=== PATIENT | female | born 1990 | race Caucasian/White ===

== ENCOUNTER 2020-12-17 09:27 | Emergency (ER) | payer OTHER ==
[2020-12-17 09:36] VITALS: TEMP 98
[2020-12-17] MEDS ORDERED: ONDANSETRON 4 MG/2 ML VIAL IVP STA (10:21)
--- NOTE | 2020-12-17 10:39 | ED ---
General Adult HPI - General Chief complaint: Abdominal Pain Stated complaint: 10 Wks Preg,Vaginal Bleeding Time Seen by Provider: 12/17/20 09:59 Source: patient Mode of arrival: ambulatory Limitations: no limitations - History of Present Illness Initial comments: Patient is a 30-year-old female presenting to the emergency Department with complaints of lower abdominal cramping and vaginal spotting that started 2 days ago. She states she's actually been having lower abdominal cramping and discomfort for the past week and then noticed spotting a couple days ago. She describes it as darker brown in nature, a clot and then has been having spotting every time she wipes. She is currently approximately 10 weeks , . She has history of 2 C-sections, no other abdominal surgeries. She denies any fevers or chills, no chest pain or shortness of breath. She denies any dysuria. She has not had ultrasound during this yet. She has no further complaints at this time. - Related Data Home Medications Medication Instructions Recorded Confirmed Gummy 2 tab PO HS 12/17/20 12/17/20 Allergies Allergy/AdvReac Type Severity Reaction Status Date / Time No Known Allergies Allergy Verified 12/17/20 12:27 Review of Systems ROS Statement: Those systems with pertinent positive or pertinent negative responses have been documented in the HPI. ROS Other: All systems not noted in ROS Statement are negative. Past Medical History Past Medical History: No Reported History History of Any Multi-Drug Resistant Organisms: None Reported Past Surgical History: Section Past Psychological History: Anxiety, Depression Smoking Status: Never smoker Past Alcohol Use History: None Reported Past Drug Use History: Marijuana General Exam - General Exam Comments Initial Comments: GENERAL: Patient is well-developed and well-nourished. Patient is nontoxic and in no acute distress. HEAD: Atraumatic, normocephalic. EYES: Pupils equal round and reactive to light, extraocular movements intact, sclera anicteric, conjunctiva are normal. Eyelids were unremarkable. ENT: TMs normal, nares patent, oropharynx clear without exudates. Moist mucous membranes. NECK: Normal range of motion, supple without lymphadenopathy or JVD. LUNGS: Unlabored respirations. Breath sounds clear to auscultation bilaterally and equal. No wheezes rales or rhonchi. HEART: Regular rate and rhythm without murmurs, rubs or gallops. ABDOMEN: Soft, no deep palpation in the lower abdomen, more so left greater than right, normoactive bowel sounds. No guarding, no rebound. No masses appreciated. : Deferred MUSCULOSKELETAL: Normal extremities with adequate strength and normal range of motion, no pitting or edema. No clubbing or cyanosis. NEUROLOGICAL: Patient is alert and oriented x 3. Motor and sensory are also intact. Cranial nerves II through XII grossly intact. Symmetrical smile. Normal speech, normal gait. PSYCH: Normal mood, normal affect. SKIN: Warm, Dry, normal turgor, no rashes or lesions noted. Limitations: no limitations Course Vital Signs 12/17/20 09:32 Temperature 98.0 F Pulse Rate 83 Respiratory 18 Rate Blood Pressure 118/80 O2 Sat by Pulse 100 Oximetry Medical Decision Making - Medical Decision Making Patient is a 30-year-old female here, currently 10 weeks , presenting with abdominal cramping and some vaginal spotting over the past 2 days. No current vaginal bleeding. Mild discomfort on palpation. Labs are all within normal limits, hCG Quant is 112,000, urine is normal. Ultrasound today reveals a single IUP measuring approximately 10 weeks, 4 days. Heart rate is in the 167 to 180s. No acute abnormality seen. Patient's blood type is B+. I discussed these findings with the patient. She states she has an appointment to see Dr. Howe. She is stable for discharge. Return parameters were discussed with her and she verbalized understanding. Case discussed with Dr. Charles. - Lab Data Result diagrams: 12/17/20 10:27 12/17/20 10:27 Lab Results 12/17/20 12/17/20 12/17/20 Range/Units 10:27 10:27 10:27 WBC 8.8 (3.8-10.6) k/uL RBC 4.32 (3.80-5.40) m/uL Hgb 13.1 (11.4-16.0) gm/dL Hct 36.9 (34.0-46.0) % MCV 85.3 (80.0-100.0) fL MCH 30.4 (25.0-35.0) pg MCHC 35.6 (31.0-37.0) g/dL RDW 12.3 (11.5-15.5) % Plt Count 210 (150-450) k/uL MPV 8.0 Neutrophils % 78 % Lymphocytes % 17 % Monocytes % 4 % Eosinophils % 1 % Basophils % 0 % Neutrophils # 6.8 (1.3-7.7) k/uL Lymphocytes # 1.5 (1.0-4.8) k/uL Monocytes # 0.3 (0-1.0) k/uL Eosinophils # 0.1 (0-0.7) k/uL Basophils # 0.0 (0-0.2) k/uL Sodium 137 (137-145) mmol/L Potassium 3.8 (3.5-5.1) mmol/L Chloride 105 (98-107) mmol/L Carbon Dioxide 24 (22-30) mmol/L Anion Gap 8 mmol/L BUN 6 L (7-17) mg/dL Creatinine 0.36 L (0.52-1.04) mg/dL Est GFR (CKD-EPI)AfAm >90 (>60 ml/min/1.73 sqM) Est GFR (CKD-EPI)NonAf >90 (>60 ml/min/1.73 sqM) Glucose 100 H (74-99) mg/dL Calcium 9.3 (8.4-10.2) mg/dL Total Bilirubin 0.2 (0.2-1.3) mg/dL AST 21 (14-36) U/L ALT 13 (4-34) U/L Alkaline Phosphatase 44 (38-126) U/L Total Protein 6.3 (6.3-8.2) g/dL Albumin 3.8 (3.5-5.0) g/dL HCG, Quant 217621.0 mIU/mL Urine Color Yellow Urine Appearance Clear (Clear) Urine pH 6.5 (5.0-8.0) Ur Specific [place] 1.014 (1.001-1.035) Urine Protein Negative (Negative) Urine Glucose (UA) Negative (Negative) Urine Ketones Negative (Negative) Urine Blood Negative (Negative) Urine Nitrite Negative (Negative) Urine Bilirubin Negative (Negative) Urine Urobilinogen <2.0 (<2.0) mg/dL Ur Leukocyte Esterase Negative (Negative) Blood Type Blood Type Recheck Bld Type Recheck Status 12/17/20 Range/Units 12:00 WBC (3.8-10.6) k/uL RBC (3.80-5.40) m/uL Hgb (11.4-16.0) gm/dL Hct (34.0-46.0) % MCV (80.0-100.0) fL MCH (25.0-35.0) pg MCHC (31.0-37.0) g/dL RDW (11.5-15.5) % Plt Count (150-450) k/uL MPV Neutrophils % % Lymphocytes % % Monocytes % % Eosinophils % % Basophils % % Neutrophils # (1.3-7.7) k/uL Lymphocytes # (1.0-4.8) k/uL Monocytes # (0-1.0) k/uL Eosinophils # (0-0.7) k/uL Basophils # (0-0.2) k/uL Sodium (137-145) mmol/L Potassium (3.5-5.1) mmol/L Chloride (98-107) mmol/L Carbon Dioxide (22-30) mmol/L Anion Gap mmol/L BUN (7-17) mg/dL Creatinine (0.52-1.04) mg/dL Est GFR (CKD-EPI)AfAm (>60 ml/min/1.73 sqM) Est GFR (CKD-EPI)NonAf (>60 ml/min/1.73 sqM) Glucose (74-99) mg/dL Calcium (8.4-10.2) mg/dL Total Bilirubin (0.2-1.3) mg/dL AST (14-36) U/L ALT (4-34) U/L Alkaline Phosphatase (38-126) U/L Total Protein (6.3-8.2) g/dL Albumin (3.5-5.0) g/dL HCG, Quant mIU/mL Urine Color Urine Appearance (Clear) Urine pH (5.0-8.0) Ur Specific [place] (1.001-1.035) Urine Protein (Negative) Urine Glucose (UA) (Negative) Urine Ketones (Negative) Urine Blood (Negative) Urine Nitrite (Negative) Urine Bilirubin (Negative) Urine Urobilinogen (<2.0) mg/dL Ur Leukocyte Esterase (Negative) Blood Type B Positive Blood Type Recheck B Pos Bld Type Recheck Status No Disposition Clinical Impression: Vaginal bleeding during Disposition: HOME SELF-CARE Condition: Stable Instructions (If sedation given, give patient instructions): Non-Threatening First Trimester Vaginal Bleed (ED) Additional Instructions: Please return to the Emergency Department if symptoms worsen or any other concerns. Please follow-up with [facility] as discussed. Is patient prescribed a controlled substance at d/c from ED?: No Referrals: None,Stated [Primary Care Provider] - 1-2 days Inna Howe MD [STAFF PHYSICIAN] - 1-2 days Time of Disposition: 13:01
[2020-12-17 10:45] LABS: Basophils % (A) 0 %; Eosinophils # (A) 0.1 k/uL (0-0.7); Eosinophils % (A) 1 %; HCT 36.9 % (34.0-46.0); HGB 13.1 gm/dL (11.4-16.0); Lymphocytes # (A) 1.5 k/uL (1.0-4.8); Lymphocytes % (A) 17 %; MCH 30.4 pg (25.0-35.0); MCHC 35.6 g/dL (31.0-37.0); MCV 85.3 fL (80.0-100.0); Monocytes # (A) 0.3 k/uL (0-1.0); Monocytes % (A) 4 %; Neutrophils # (A) 6.8 k/uL (1.3-7.7); Neutrophils % (A) 78 %; Platelet Count 210 k/uL (150-450); RBC 4.32 m/uL (3.80-5.40); RDW 12.3 % (11.5-15.5); WBC 8.8 k/uL (3.8-10.6)
[2020-12-17 10:52] LABS: Appearance,Urine Clear (Clear); Bilirubin,Urine Negative (Negative); Blood,Urine Negative (Negative); Color,Urine Yellow; Glucose,Urine (UA) Negative (Negative); Ketones,Urine Negative (Negative); Leukocyte Esterase,Urine Negative (Negative); Nitrite,Urine Negative (Negative); PH, Urine 6.5 (5.0-8.0); Protein,Urine Negative (Negative); Specific Gravity,Urine 1.014 (1.001-1.035); Urobilinogen,Urine <2.0 mg/dL (<2.0)
[2020-12-17 11:04] LABS: ALT 13 U/L (4-34); AST 21 U/L (14-36); African American GFR (CKD) >90 (>60 ml/min/1.73 sqM); Albumin 3.8 g/dL (3.5-5.0); Alkaline Phosphatase 44 U/L (38-126); Anion Gap 8 mmol/L; Blood Urea Nitrogen 6 mg/dL (7-17); Calcium 9.3 mg/dL (8.4-10.2); Carbon Dioxide 24 mmol/L (22-30); Chloride 105 mmol/L (98-107); Glucose 100 mg/dL (74-99); Non-African American GFR(CKD) >90 (>60 ml/min/1.73 sqM); Potassium 3.8 mmol/L (3.5-5.1); Sodium 137 mmol/L (137-145); Total Bilirubin 0.2 mg/dL (0.2-1.3); Total Protein 6.3 g/dL (6.3-8.2)
--- NOTE | 2020-12-17 12:03 | US ---
EXAMINATION TYPE: Transabdominal DATE OF EXAM: 12/17/2020 11:49 AM COMPARISON: NONE CLINICAL HISTORY: cramping, bleeding, 10 wks. cramping with brown blood when she wipes EXAM PERFORMED: OBTA EXAM MEASUREMENTS: GESTATIONAL AGE / DATING Physician Established: Not yet established Dates by LMP: (10 weeks/4 days) EDC: 07/11/2021 Dates by First Scan: No previous this is first scan Dates by Current Scan for: (10 weeks/4 days) EDC: 07/11/2021 MATERNAL ANATOMY Uterus: 12.0 x 8.0 x 5.4cm Right Ovary: 3.2 x 1.8 x 1.5cm Left Ovary: 2.8 x 2.5 x 1.6cm Post CDS / Adnexa: wnl Presence of free fluid: no Presence of corpus luteal cyst: not seen Presence of subchorionic bleed: no GESTATION / SURVEY CRL: 3.7cm (10 weeks/4 days) MSD: wnl Yolk Sac (normal less than 6mm): 0.5cm Heart Rate: 167-181bpm Rhythm: Normal IUP: Viable IUP Date of LMP: 10/04/2020 This is not an anatomic survey. IMPRESSION: Single intrauterine measuring approximately 10 weeks and 4 days by sonographic criteria.
[2020-12-17 13:44] VITALS: BP 114/65; PULSE 67; RESP 16
== END 2020-12-17 13:43 | disposition home or self-care (01) ==
LOC: EC 09:27
DX: O20.9 Hemorrhage in early pregnancy, unspecified (principal); O99.321 Drug use complicating pregnancy, first trimester; F12.90 Cannabis use, unspecified, uncomplicated; Z3A.10 10 weeks gestation of pregnancy
CPT/HCPCS: 36415; 86900; 86901; 80053; 85025; 81003; 84702; 76801; 96374; 99284; J2405; 99283

== ENCOUNTER 2020-12-26 14:45 | Emergency (ER) | payer OTHER ==
[2020-12-26 14:50] VITALS: BP 115/73; PULSE 88; RESP 16; TEMP 98.3
[2020-12-26] MEDS ORDERED: ONDANSETRON ODT 4 MG TAB PO STA (15:10)
--- NOTE | 2020-12-26 15:16 | ED ---
General Adult HPI - General Chief complaint: Abdominal Pain Stated complaint: vomiting, 12 weeks Source: patient, RN notes reviewed Mode of arrival: ambulatory Limitations: no limitations - History of Present Illness Initial comments: 30-year-old well-appearing white female, alert and oriented 4, presents to the emergency room with complaints of nausea and vomiting in . Patient states that she's been vomiting since 6:00 this morning. States too many times to count and there was some specks of blood in it which is why she came to the emergency room. Patient states that she has abdominal pain from so much vomiting. She denies any pelvic pain or vaginal bleeding. Patient has been seen on December 17 for similar symptoms and had an ultrasound done showing 10 weeks and 4 days IUP. Patient states the Zofran given to her at that time helped but was not discharged with any. She is scheduled to be seeing Dr. Howe but has not seen this doctor yet. Patient does state that she smokes marijuana daily and that it seems to help. -: days(s) (1) Location: abdomen Radiation: non-radiation Severity scale (1-10): 9 Quality: constant Worsens with: eating Associated Symptoms: nausea/vomiting Treatments Prior to Arrival: other (Tylenol) - Related Data Home Medications Medication Instructions Recorded Confirmed Gummy 2 tab PO HS 12/17/20 12/17/20 Previous Rx's Medication Instructions Recorded Ondansetron Odt [Zofran Odt] 4 mg PO Q8HR PRN #10 tab 12/26/20 Allergies Allergy/AdvReac Type Severity Reaction Status Date / Time No Known Allergies Allergy Verified 12/26/20 14:50 Review of Systems ROS Statement: Those systems with pertinent positive or pertinent negative responses have been documented in the HPI. ROS Other: All systems not noted in ROS Statement are negative. Past Medical History Past Medical History: No Reported History History of Any Multi-Drug Resistant Organisms: None Reported Past Surgical History: Section Past Psychological History: Anxiety, Depression Smoking Status: Never smoker Past Alcohol Use History: None Reported Past Drug Use History: Marijuana General Exam Limitations: no limitations General appearance: alert, in no apparent distress Head exam: Present: atraumatic, normocephalic, normal inspection Eye exam: Present: normal appearance, PERRL, EOMI. Absent: scleral icterus, conjunctival injection, periorbital swelling ENT exam: Present: normal exam, normal oropharynx, mucous membranes moist Neck exam: Present: normal inspection, full ROM. Absent: tenderness, meningismus, lymphadenopathy, thyromegaly Respiratory exam: Present: normal lung sounds bilaterally. Absent: respiratory distress, wheezes, rales, rhonchi, stridor, chest wall tenderness, accessory muscle use, decreased breath sounds, prolonged expiratory Cardiovascular Exam: Present: regular rate, normal rhythm, normal heart sounds. Absent: systolic murmur, diastolic murmur, rubs, gallop, clicks GI/Abdominal exam: Present: soft, normal bowel sounds. Absent: distended, tenderness, guarding, rebound, rigid Extremities exam: Present: normal inspection, full ROM, normal capillary refill. Absent: tenderness, pedal edema, joint swelling, calf tenderness Back exam: Present: normal inspection, full ROM. Absent: tenderness, CVA tenderness (R), CVA tenderness (L), muscle spasm, paraspinal tenderness, vertebral tenderness Neurological exam: Present: alert, oriented X3, CN II-XII intact Psychiatric exam: Present: normal affect, normal mood Skin exam: Present: warm, dry, intact, normal color. Absent: rash, cyanosis, diaphoretic, erythema, petechiae, pallor, mottled Course Vital Signs 12/26/20 14:47 Temperature 98.3 F Pulse Rate 88 Respiratory 16 Rate Blood Pressure 115/73 O2 Sat by Pulse 96 Oximetry Medical Decision Making - Medical Decision Making Patient was given Zofran and Reglan in the emergency room. She is well appearing with moist mucous membranes. Urine shows no ketones or signs of infection. She'll be directed to follow up with her LANDSCAPE NURSERYMAN and take Zofran as needed, She was also directed to try Benadryl 25 mg every 8 hours as needed for nausea and vomiting if no relief with zofran. Also directed to stop smoking marijuana. Patient encouraged to suck on ice cubes to maintain hydration. Patient directed to return to the emergency room with any vaginal bleeding pelvic pain or inability keep fluids down. - Lab Data Lab Results 12/26/20 Range/Units 15:25 Urine Color Yellow Urine Appearance Clear (Clear) Urine pH 5.5 (5.0-8.0) Ur Specific [place] 1.029 (1.001-1.035) Urine Protein Trace H (Negative) Urine Glucose (UA) Negative (Negative) Urine Ketones Negative (Negative) Urine Blood Negative (Negative) Urine Nitrite Negative (Negative) Urine Bilirubin Negative (Negative) Urine Urobilinogen <2.0 (<2.0) mg/dL Ur Leukocyte Esterase Negative (Negative) Disposition Clinical Impression: Hyperemesis gravidarum Disposition: HOME SELF-CARE Condition: Good Instructions (If sedation given, give patient instructions): Hyperemesis Gravidarum (ED) Additional Instructions: Take Zofran as needed for nausea and vomiting. You can also try 25 mg of Benadryl every 8 hours. Follow-up with your LANDSCAPE NURSERYMAN next week. Prescriptions: Ondansetron Odt [Zofran Odt] 4 mg PO Q8HR PRN #10 tab PRN Reason: Nausea Is patient prescribed a controlled substance at d/c from ED?: No Referrals: None,Stated [Primary Care Provider] - 1-2 days Time of Disposition: 16:49
[2020-12-26 15:40] LABS: Appearance,Urine Clear (Clear); Bilirubin,Urine Negative (Negative); Blood,Urine Negative (Negative); Color,Urine Yellow; Glucose,Urine (UA) Negative (Negative); Ketones,Urine Negative (Negative); Leukocyte Esterase,Urine Negative (Negative); Nitrite,Urine Negative (Negative); PH, Urine 5.5 (5.0-8.0); Protein,Urine Trace (Negative); Specific Gravity,Urine 1.029 (1.001-1.035); Urobilinogen,Urine <2.0 mg/dL (<2.0)
[2020-12-26] MEDS ORDERED: METOCLOPRAMIDE 5 MG/ML 2 ML VIAL IM STA (16:14)
== END 2020-12-26 17:47 | disposition home or self-care (01) ==
LOC: EC 14:45
DX: O21.0 Mild hyperemesis gravidarum (principal); O99.321 Drug use complicating pregnancy, first trimester; F12.90 Cannabis use, unspecified, uncomplicated; Z3A.12 12 weeks gestation of pregnancy
CPT/HCPCS: 81003; 99284; J2765

== ENCOUNTER 2021-01-08 10:24 | Emergency (ER) | payer OTHER ==
[2021-01-08 10:28] VITALS: PULSE 85; RESP 16
[2021-01-08] MEDS ORDERED: SODIUM CHLORIDE 0.9% 1,000 ML IV STA (10:40)
[2021-01-08] MEDS ORDERED: ONDANSETRON 4 MG/2 ML VIAL IVP STA (10:40)
[2021-01-08 11:03] LABS: Basophils % (A) 0 %; Eosinophils # (A) 0.1 k/uL (0-0.7); Eosinophils % (A) 1 %; HCT 40.4 % (34.0-46.0); HGB 14.2 gm/dL (11.4-16.0); Lymphocytes # (A) 1.5 k/uL (1.0-4.8); Lymphocytes % (A) 17 %; MCH 30.3 pg (25.0-35.0); MCHC 35.1 g/dL (31.0-37.0); MCV 86.6 fL (80.0-100.0); Mean Platelet Volume 7.8; Monocytes # (A) 0.4 k/uL (0-1.0); Monocytes % (A) 5 %; Neutrophils # (A) 6.9 k/uL (1.3-7.7); Neutrophils % (A) 77 %; Platelet Count 249 k/uL (150-450); RBC 4.66 m/uL (3.80-5.40); RDW 12.9 % (11.5-15.5); WBC 8.9 k/uL (3.8-10.6)
[2021-01-08 11:17] LABS: ALT 15 U/L (4-34); AST 26 U/L (14-36); African American GFR (CKD) >90 (>60 ml/min/1.73 sqM); Albumin 4.2 g/dL (3.5-5.0); Alkaline Phosphatase 46 U/L (38-126); Amylase 53 U/L (30-110); Anion Gap 10 mmol/L; Blood Urea Nitrogen 7 mg/dL (7-17); Calcium 9.9 mg/dL (8.4-10.2); Carbon Dioxide 22 mmol/L (22-30); Chloride 102 mmol/L (98-107); Glucose 110 mg/dL (74-99); Lipase 87 U/L (23-300); Non-African American GFR(CKD) >90 (>60 ml/min/1.73 sqM); Potassium 3.8 mmol/L (3.5-5.1); Sodium 134 mmol/L (137-145); Total Bilirubin 0.5 mg/dL (0.2-1.3); Total Protein 6.9 g/dL (6.3-8.2)
[2021-01-08 11:50] LABS: Appearance,Urine Cloudy (Clear); Bacteria,Urine Rare /hpf; Bilirubin,Urine Negative (Negative); Blood,Urine Negative (Negative); Color,Urine Yellow; Glucose,Urine (UA) Trace (Negative); Ketones,Urine 2+ (Negative); Leukocyte Esterase,Urine Large (Negative); Mucus,Urine Many /hpf; Nitrite,Urine Negative (Negative); Protein,Urine 1+ (Negative); Specific Gravity,Urine 1.035 (1.001-1.035); Squamous Epithelial Cell,Urine 21 /hpf (0-4); WBC,Urine 11 /hpf (0-5)
[2021-01-08 12:31] VITALS: BP 101/76; TEMP 98.3
--- NOTE | 2021-01-08 13:37 | US ---
EXAMINATION TYPE: US OB >= 14 wk fetus DATE OF EXAM: 01/08/2021 COMPARISON: None CLINICAL HISTORY: unable to obtain FHT, hand held doppler broken and would not display number, ordere d US to obtain heart tones TECHNIQUE: OBTA GESTATIONAL AGE / DATING Physician Established: (13 weeks/5 days) EDC: 07/11/2021 Dates by LMP: (13 weeks/5 days) EDC: 07/11/2021 Dates by First Scan: (13 weeks/5 days) EDC: 07/11/2021 Dates by Current Scan: (14 weeks/1 days) EDC: 07/08/2021 SURVEY IUP: Single PLACENTA: Posterior PREVIA: Marginal SPRING: 9.5 cm Normal CERVICAL LENGTH (transabdominal: norm > 3.0cm): 3.3 cm BIOMETRY PRESENTATION: Variable BPD: 2.3 cm 14 weeks / 0 days HC: 8.9 cm 14 weeks / 0 days AC: 7.4 cm 14 weeks / 0 days FL: 1.4 cm 14 weeks / 1 days ESTIMATED WEIGHT IN GRAMS: 88 grams ESTIMATED WEIGHT IN LBS/OZ: 0 lbs. 3 oz. WEIGHT PERCENTAGE BASED ON ESTABLISHED DATES: 52% HC/AC: 1.2 Normal FL/AC: 19 Normal HEART RATE: 144 bpm RHYTHM: Normal IMPRESSION: Single intrauterine gestation estimated at 14 weeks 1 day gestation based on current ultrasound measu rements. Cardiac activity measures 144 bpm.
--- NOTE | 2021-01-08 14:52 | ED ---
General Adult HPI - General Chief complaint: Abdominal Pain Stated complaint: 14 wks preg, vomiting Time Seen by Provider: 01/08/21 10:30 Source: patient, RN notes reviewed Mode of arrival: ambulatory Limitations: no limitations - History of Present Illness Initial comments: Patient is a 30-year-old female that presents to emergency room complaining of nausea and vomiting. She notes that she is 14 weeks . She notes that she was seen at a different hospital was given Zofran sent home. Patient notes that she is unable to keep anything down at this time. She notes that she feels dehydrated. She called her WASTEWATER TECHNICIAN who told her to come emergency room to get evaluated. Patient denied any other issues or complaints. She was well-appearing well-hydrated 22-year-old female apparent distress or pain. She denied any chest pain short of breath headache diarrhea constipation fever fatigue chills. - Related Data Home Medications Medication Instructions Recorded Confirmed Gummy 2 tab PO HS 12/17/20 01/08/21 Acetaminophen Tab [Tylenol Tab] 500 mg PO Q6HR PRN 01/08/21 01/08/21 diphenhydrAMINE [Benadryl] 25 mg PO DAILY PRN 01/08/21 01/08/21 Previous Rx's Medication Instructions Recorded Cephalexin [Keflex] 500 mg PO Q6HR #40 cap 01/08/21 Ondansetron Odt [Zofran Odt] 4 mg PO Q8HR PRN #10 tab 01/08/21 Allergies Allergy/AdvReac Type Severity Reaction Status Date / Time No Known Allergies Allergy Verified 01/08/21 11:00 Review of Systems ROS Statement: Those systems with pertinent positive or pertinent negative responses have been documented in the HPI. ROS Other: All systems not noted in ROS Statement are negative. Past Medical History Past Medical History: No Reported History History of Any Multi-Drug Resistant Organisms: None Reported Past Surgical History: Section Past Psychological History: Anxiety, Depression Smoking Status: Never smoker Past Alcohol Use History: None Reported Past Drug Use History: Marijuana General Exam Limitations: no limitations General appearance: alert, in no apparent distress Head exam: Present: atraumatic, normocephalic, normal inspection Eye exam: Present: normal appearance, PERRL, EOMI. Absent: scleral icterus, conjunctival injection, periorbital swelling Neck exam: Present: normal inspection Respiratory exam: Present: normal lung sounds bilaterally. Absent: respiratory distress, wheezes, rales, rhonchi, stridor Cardiovascular Exam: Present: regular rate, normal rhythm, normal heart sounds. Absent: systolic murmur, diastolic murmur, rubs, gallop, clicks GI/Abdominal exam: Present: soft, normal bowel sounds. Absent: distended, tenderness, guarding, rebound, rigid Extremities exam: Present: normal inspection, full ROM, normal capillary refill. Absent: tenderness, pedal edema, joint swelling, calf tenderness Neurological exam: Present: alert, oriented X3 Psychiatric exam: Present: normal affect, normal mood Skin exam: Present: warm, dry, intact, normal color. Absent: rash Course Vital Signs 01/08/21 01/08/21 10:25 12:29 Temperature 98.2 F 98.3 F Pulse Rate 85 85 Respiratory 16 16 Rate Blood Pressure 123/80 101/76 O2 Sat by Pulse 100 99 Oximetry Medical Decision Making - Medical Decision Making 30-year-old female was for 2 weeks complaining of nausea and vomiting. Labs, 1 L normal saline, ultrasound ordered. Labs unremarkable. Urinalysis shows several bacteria early signs of UTI patient will be sent antibiotics. Ultrasound shows a 14 week 1 day gestation intrauterine. Case discussed with Dr. Gates, patient discharge home with follow-up to WASTEWATER TECHNICIAN. - Lab Data Result diagrams: 01/08/21 10:30 01/08/21 10:30 Lab Results 01/08/21 01/08/21 01/08/21 Range/Units 10:30 10:30 10:59 WBC 8.9 (3.8-10.6) k/uL RBC 4.66 (3.80-5.40) m/uL Hgb 14.2 (11.4-16.0) gm/dL Hct 40.4 (34.0-46.0) % MCV 86.6 (80.0-100.0) fL MCH 30.3 (25.0-35.0) pg MCHC 35.1 (31.0-37.0) g/dL RDW 12.9 (11.5-15.5) % Plt Count 249 (150-450) k/uL MPV 7.8 Neutrophils % 77 % Lymphocytes % 17 % Monocytes % 5 % Eosinophils % 1 % Basophils % 0 % Neutrophils # 6.9 (1.3-7.7) k/uL Lymphocytes # 1.5 (1.0-4.8) k/uL Monocytes # 0.4 (0-1.0) k/uL Eosinophils # 0.1 (0-0.7) k/uL Basophils # 0.0 (0-0.2) k/uL Sodium 134 L (137-145) mmol/L Potassium 3.8 (3.5-5.1) mmol/L Chloride 102 (98-107) mmol/L Carbon Dioxide 22 (22-30) mmol/L Anion Gap 10 mmol/L BUN 7 (7-17) mg/dL Creatinine 0.39 L (0.52-1.04) mg/dL Est GFR (CKD-EPI)AfAm >90 (>60 ml/min/1.73 sqM) Est GFR (CKD-EPI)NonAf >90 (>60 ml/min/1.73 sqM) Glucose 110 H (74-99) mg/dL Calcium 9.9 (8.4-10.2) mg/dL Total Bilirubin 0.5 (0.2-1.3) mg/dL AST 26 (14-36) U/L ALT 15 (4-34) U/L Alkaline Phosphatase 46 (38-126) U/L Total Protein 6.9 (6.3-8.2) g/dL Albumin 4.2 (3.5-5.0) g/dL Amylase 53 (30-110) U/L Lipase 87 (23-300) U/L Urine Color Yellow Urine Appearance Cloudy H (Clear) Urine pH 6.0 (5.0-8.0) Ur Specific [place] 1.035 (1.001-1.035) Urine Protein 1+ H (Negative) Urine Glucose (UA) Trace H (Negative) Urine Ketones 2+ H (Negative) Urine Blood Negative (Negative) Urine Nitrite Negative (Negative) Urine Bilirubin Negative (Negative) Urine Urobilinogen 2.0 (<2.0) mg/dL Ur Leukocyte Esterase Large H (Negative) Urine WBC 11 H (0-5) /hpf Ur Squamous Epith Cells 21 H (0-4) /hpf Urine Bacteria Rare H (None) /hpf Urine Mucus Many H (None) /hpf Urine HCG, Qual (Not Detectd) 01/08/21 Range/Units 12:33 WBC (3.8-10.6) k/uL RBC (3.80-5.40) m/uL Hgb (11.4-16.0) gm/dL Hct (34.0-46.0) % MCV (80.0-100.0) fL MCH (25.0-35.0) pg MCHC (31.0-37.0) g/dL RDW (11.5-15.5) % Plt Count (150-450) k/uL MPV Neutrophils % % Lymphocytes % % Monocytes % % Eosinophils % % Basophils % % Neutrophils # (1.3-7.7) k/uL Lymphocytes # (1.0-4.8) k/uL Monocytes # (0-1.0) k/uL Eosinophils # (0-0.7) k/uL Basophils # (0-0.2) k/uL Sodium (137-145) mmol/L Potassium (3.5-5.1) mmol/L Chloride (98-107) mmol/L Carbon Dioxide (22-30) mmol/L Anion Gap mmol/L BUN (7-17) mg/dL Creatinine (0.52-1.04) mg/dL Est GFR (CKD-EPI)AfAm (>60 ml/min/1.73 sqM) Est GFR (CKD-EPI)NonAf (>60 ml/min/1.73 sqM) Glucose (74-99) mg/dL Calcium (8.4-10.2) mg/dL Total Bilirubin (0.2-1.3) mg/dL AST (14-36) U/L ALT (4-34) U/L Alkaline Phosphatase (38-126) U/L Total Protein (6.3-8.2) g/dL Albumin (3.5-5.0) g/dL Amylase (30-110) U/L Lipase (23-300) U/L Urine Color Urine Appearance (Clear) Urine pH (5.0-8.0) Ur Specific [place] (1.001-1.035) Urine Protein (Negative) Urine Glucose (UA) (Negative) Urine Ketones (Negative) Urine Blood (Negative) Urine Nitrite (Negative) Urine Bilirubin (Negative) Urine Urobilinogen (<2.0) mg/dL Ur Leukocyte Esterase (Negative) Urine WBC (0-5) /hpf Ur Squamous Epith Cells (0-4) /hpf Urine Bacteria (None) /hpf Urine Mucus (None) /hpf Urine HCG, Qual Detected (Not Detectd) - Radiology Data Radiology results: report reviewed, image reviewed ultrasound: Single intrauterine gestation estimated 14 weeks 1 day gestation based on current ultrasound measurements. Cardiac activity measures 144 bpm Disposition Clinical Impression: Nausea and vomiting, Urinary tract infection Disposition: HOME SELF-CARE Condition: Stable Instructions (If sedation given, give patient instructions): Nausea and Vomiting in (ED) Additional Instructions: Please return to the Emergency Department if symptoms worsen or any other concerns. Follow-up with primary care in the next 1-2 days. Follow-up with WASTEWATER TECHNICIAN as needed. Take antibiotics as prescribed until complete. Take Zofran as prescribed. Prescriptions: Ondansetron Odt [Zofran Odt] 4 mg PO Q8HR PRN #10 tab PRN Reason: Nausea Is patient prescribed a controlled substance at d/c from ED?: No Referrals: None,Stated [Primary Care Provider] - 1-2 days Time of Disposition: 14:51
== END 2021-01-08 15:03 | disposition home or self-care (01) ==
LOC: EC 10:24
DX: O23.42 Unspecified infection of urinary tract in pregnancy, second trimester (principal); O21.9 Vomiting of pregnancy, unspecified; O99.322 Drug use complicating pregnancy, second trimester; F12.90 Cannabis use, unspecified, uncomplicated; Z3A.14 14 weeks gestation of pregnancy
CPT/HCPCS: 36415; 80053; 82150; 83690; 85025; 81001; 81025; 87086; 76805; 96374; 96361 ×4; 99284; J2405

== ENCOUNTER 2021-04-23 10:34 | Outpatient (CLI) | payer OTHER ==
[2021-04-23] MEDS ORDERED: ACETAMINOPHEN TAB 325 MG TAB PO STA (11:13)
[2021-04-23 11:51] VITALS: BP 111/62; PULSE 100; RESP 16; TEMP 98.3
--- NOTE | 2021-05-20 07:11 | P.MSEPDOC ---
Presenting Problems - Arrival Data Date of Arrival on Unit: 04/23/21 Time of Arrival on Unit: 10:45 Mode of Transport: Ambulatory - Complaint OB-Reason for Admission/Chief Complaint: Headache, Other Comment: left arm pain "numb " down arm to fingers. 2 middle. stretcks of blood throwing up today. leg swollen at work yesterday. passed out afew days ago. pt questions pih? repeat c/s. u/s in er in january staates 29 weeks preg. today by dates. DOM. just got insurance yesterday Medical History - Information : 4 Para: 2 Term: 2 : 0 Abortions: Spontaneous or Elective: 1 Number of Living Children: 2 - Gestational Age Gestational Age by YUNIER (wks/days): 29 Weeks and 1 Days - History Complications: No Care, Prior , Hx. Substance Abuse Comment: thc use with preg. Review of Systems - Review of Systems Constitutional: No problems Breast: No problems ENT: No problems Cardiovascular: No problems Respiratory: No problems Gastrointestinal: No problems Genitourinary: No problems Musculoskeletal: No problems Neurological: Fainting Skin: No problems Comment: see above notes Vital Signs - Temperature Temperature: 98.3 F Temperature Source: Temporal Artery Scan - Pulse Right Radial Pulse Rate: 100 Pulse Assessment Method: Automatic Cuff - Respirations Respiratory Rate: 16 Oxygen Delivery Method: Room Air O2 Sat by Pulse Oximetry: 98 - Blood Pressure Right Arm Blood Pressure: 111/62 Blood Pressure Mean: 78 Blood Pressure Source: Automatic Cuff Medical Screen Scoring - Assessment - Baby A Baseline FHR: 135 Heart Rate - NICHD Category: Category I (Normal) Physician Notification - Physician Notified Physician Notified Date: 04/23/21 Physician Notified Time: 11:00 Physician: Catalina Castorena New Order Received: Yes (tylenol, crackers and attempt water. if ok may go home to rest) Maternal Triage Index - Scheduled/Requesting Priority 5 Scheduled/Requesting Priority 5: Yes Criteria Met for Priority 5: dom. seen and left Disposition - Disposition OB Disposition: Discharge to home, Written follow up instructions reviewed Discharge Date: 04/23/21 Discharge Time: 11:36 I agree with the RN Medical Screening Exam: Yes Case reviewed; plan agreed upon as documented in EMR&OBIX.: Yes Diagnosis: NEURALGIA AND NEURITIS, UNSPECIFIED
== END 2021-04-23 11:36 | disposition home or self-care (01) ==
LOC: FBPOP 10:34
PROVIDERS: ATTEND Obstetrics & Gynecology
DX: O99.891 Other specified diseases and conditions complicating pregnancy (principal); M79.2 Neuralgia and neuritis, unspecified; Z3A.29 29 weeks gestation of pregnancy
CPT/HCPCS: 59025; G0463; 99213

== ENCOUNTER 2021-06-22 13:39 | Outpatient (CLI) | payer OTHER ==
[2021-06-22 14:30] LABS: Appearance,Urine Clear (Clear); Bilirubin,Urine Negative (Negative); Blood,Urine Negative (Negative); Color,Urine Yellow; Glucose,Urine (UA) Negative (Negative); Ketones,Urine Negative (Negative); Leukocyte Esterase,Urine Negative (Negative); Nitrite,Urine Negative (Negative); PH, Urine 7.5 (5.0-8.0); Protein,Urine Trace (Negative); Specific Gravity,Urine 1.016 (1.001-1.035); Urobilinogen,Urine <2.0 mg/dL (<2.0)
[2021-06-22 15:53] VITALS: BP 127/70; RESP 18; TEMP 98.1
[2021-06-22 15:57] VITALS: PULSE 104
--- NOTE | 2021-06-25 09:41 | P.MSEPDOC ---
Presenting Problems - Arrival Data Date of Arrival on Unit: 06/22/21 Time of Arrival on Unit: 13:40 Mode of Transport: Ambulatory - Complaint OB-Reason for Admission/Chief Complaint: Decreased Movement, Pain Comment: C/O vaginal pain and swelling Medical History - Information : 4 Para: 2 Term: 2 : 0 Abortions: Spontaneous or Elective: 1 Number of Living Children: 2 - Gestational Age Gestational Age by YUNIER (wks/days): 37 Weeks and 5 Days Review of Systems - Review of Systems Constitutional: No problems Breast: No problems ENT: No problems Cardiovascular: No problems Respiratory: No problems Gastrointestinal: No problems Genitourinary: No problems Musculoskeletal: No problems Neurological: No problems Skin: No problems Vital Signs - Temperature Temperature: 98.1 F Temperature Source: Oral - Pulse Right Pulse Rate: 104 Pulse Assessment Method: Pulse Oximetry - Respirations Respiratory Rate: 18 Oxygen Delivery Method: Room Air O2 Sat by Pulse Oximetry: 98 - Blood Pressure Right Arm Blood Pressure: 127/70 Blood Pressure Mean: 89 Blood Pressure Source: Automatic Cuff Medical Screen Scoring - Cervical Exam Dilation (cm): 1 Effacement (%): 0 Station: -3 Membranes: Intact - Assessment - Baby A Baseline FHR: 145 Heart Rate - NICHD Category: Category I (Normal) NST: Reactive Physician Notification - Physician Notified Physician Notified Date: 06/22/21 Physician Notified Time: 15:10 Physician: Zhane Son New Order Received: Yes - Notification Comment Comment: Discharge home with follow up instructions. Maternal Triage Index - Maternal Triage Index Presenting for scheduled procedure w/no complaint: No - Stat/Priority 1 Stat Priority 1: No - Urgent/Priority 2 Urgent Priority 2: Yes Provider Notified: Zhane Son Provider Notified Time: 15:10 Criteria Met for Priority 2: Cervical exam results given. 1/thick/high. Orders recieved for discharge home with follow up instructions. Disposition - Disposition OB Disposition: Discharge to home Discharge Date: 06/22/21 Discharge Time: 15:10 I agree with the RN Medical Screening Exam: Yes Case reviewed; plan agreed upon as documented in EMR&OBIX.: Yes Diagnosis: DECREASED MOVEMENTS, THIRD TRIMESTER, FETUS 1
== END 2021-06-22 15:12 | disposition home health service (06) ==
LOC: FBPOP 13:39
PROVIDERS: ATTEND Obstetrics & Gynecology Obstetrics
DX: O36.8131 Decreased fetal movements, third trimester, fetus 1 (principal); Z3A.37 37 weeks gestation of pregnancy
CPT/HCPCS: 59025; 84112; 81003; G0463; 99213

== ENCOUNTER 2021-07-06 09:51 | Inpatient (IN) | payer OTHER ==
[2021-07-05 08:51] VITALS: BMI 35.2
[2021-07-06] MEDS ORDERED: CITRIC ACID-SODIUM CITRATE 15 ML CUP PO ONE (10:15)
[2021-07-06] MEDS ORDERED: LACTATED RINGERS 1,000 ML IV SCH (10:15)
[2021-07-06] MEDS ORDERED: LACTATED RINGERS 1,000 ML IV ONE (10:15)
[2021-07-06 10:56] LABS: Basophils % (A) 0 %; Eosinophils # (A) 0.2 k/uL (0-0.7); Eosinophils % (A) 2 %; HCT 34.8 % (34.0-46.0); Hypochromasia Slight; Lymphocytes # (A) 1.5 k/uL (1.0-4.8); Lymphocytes % (A) 15 %; MCH 25.8 pg (25.0-35.0); MCHC 31.6 g/dL (31.0-37.0); MCV 81.6 fL (80.0-100.0); Mean Platelet Volume 7.9; Monocytes # (A) 0.5 k/uL (0-1.0); Monocytes % (A) 5 %; Neutrophils # (A) 7.6 k/uL (1.3-7.7); Neutrophils % (A) 76 %; Platelet Count 308 k/uL (150-450); RBC 4.27 m/uL (3.80-5.40); RDW 14.5 % (11.5-15.5)
[2021-07-06] MEDS ORDERED: NALBUPHINE 10 MG/ML (1 ML AMP) ONE (12:00)
[2021-07-06] MEDS ORDERED: ONDANSETRON 4 MG/2 ML VIAL ONE (12:00)
[2021-07-06] MEDS ORDERED: OXYTOCIN 30 UNITS/500 ML NS BAG IV ONE (12:00)
[2021-07-06] MEDS ORDERED: PHENYLEPHRINE-0.9% NACL SYG 1,000 MCG/10 ML SYRINGE ONE (12:00)
[2021-07-06] MEDS ORDERED: MORPHINE SULFATE (PF) 0.3 MG/0.3 ML SYR ONE (12:00)
[2021-07-06] MEDS ORDERED: NALOXONE 0.4 MG/ML 1 ML VIAL IV PRN ×2 (12:40→12:52)
[2021-07-06] MEDS ORDERED: ONDANSETRON 4 MG/2 ML VIAL IVP PRN ×2 (12:40→12:52)
[2021-07-06] MEDS ORDERED: NALBUPHINE 10 MG/ML (1 ML AMP) IV PRN (12:40)
[2021-07-06] MEDS ORDERED: diphenhydrAMINE 25 MG CAP PO PRN (12:52)
[2021-07-06] MEDS ORDERED: ZOLPIDEM 5 MG TAB PO PRN (12:52)
[2021-07-06] MEDS ORDERED: METOCLOPRAMIDE 5 MG/ML 2 ML VIAL IVP PRN (12:52)
[2021-07-06] MEDS ORDERED: diphenhydrAMINE 50 MG CAP PO PRN (12:52)
[2021-07-06] MEDS ORDERED: diphenhydrAMINE 50 MG/ML 1 ML VIAL IVP PRN ×2 (12:52)
[2021-07-06] MEDS ORDERED: SIMETHICONE 80 MG CHEWABLE PO PRN (12:52)
--- NOTE | 2021-07-06 12:59 | P.HPOB ---
History of Present Illness H&P Date: 07/06/21 Chief Complaint: IUP @ 39 2/7 weeks, h/o c section, family status complete This is a 30yo at 39 weeks, EDC 07/11/2021. A shunt has been receiving routine care with myself which is been essentially uncomplicated. Patient has a prior history of 2 C-sections and desires tubal ligation. Patient notes good movement, no vaginal bleeding or loss of fluid. She denies contractions. On bloodwork this patient has a blood type of B+, rubella status immune, hepatitis B surface antigen negative, HIV negative, RPR is nonreactive, group beta strep positive. Review of Systems Constitutional: Denies chills, Denies fatigue, Denies fever Ears, nose, mouth and throat: Denies headache Cardiovascular: Reports leg edema Respiratory: Denies dyspnea Gastrointestinal: Denies constipation, Denies diarrhea, Denies nausea, Denies vomiting Genitourinary: Reports Past Medical History Past Medical History: No Reported History Additional Past Medical History / Comment(s): Hx of "miscarriage 10 yrs, had some blood clotting issues then, none since". History of Any Multi-Drug Resistant Organisms: None Reported Past Surgical History: Section Additional Past Surgical History / Comment(s): Section X2. Past Anesthesia/Blood Transfusion Reactions: No Reported Reaction, Motion Sickness Past Psychological History: ADD/ADHD, Anxiety, Depression Smoking Status: Never smoker Past Alcohol Use History: None Reported Past Drug Use History: Marijuana Additional Drug Use History / Comment(s): "No Marijuana use in 3 months". - Past Family History Mother Family Medical History: No Reported History Father Family Medical History: Coronary Artery Disease (CAD) Medications and Allergies Home Medications Medication Instructions Recorded Confirmed Type Acetaminophen [Tylenol] 325 - 650 mg PO Q4H PRN 07/05/21 07/06/21 History Allergies Allergy/AdvReac Type Severity Reaction Status Date / Time No Known Allergies Allergy Verified 07/06/21 10:15 Exam Osteopathic Statement: *. No significant issues noted on an osteopathic structural exam other than those noted in the History and Physical/Consult. Vital Signs Temp Pulse Resp BP Pulse Ox 07/06/21 10:29 98 F 100 16 131/79 95 Intake and Output 07/05/21 07/06/21 07/06/21 22:59 06:59 14:59 Other: Weight 90.265 kg Targeted physical exam is performed and state and also well-nourished well- developed female in no acute distress, breathing is noted Nonlabored, heart has regular rate and rhythm, abdomen is gravid and appropriate for gestational age, cervical exam is deferred, heart tones are noted to be category 1, no contractions are appreciated. Results Result Diagrams: 07/06/21 10:25 Abnormal Lab Results - Last 24 Hours (Table) 07/06/21 Range/Units 10:25 Hgb 11.0 L (11.4-16.0) gm/dL Assessment and Plan (1) Term Current Visit: Yes Status: Acute Code(s): Z34.90 - ENCNTR FOR SUPRVSN OF NORMAL , UNSP, UNSP TRIMESTER SNOMED Code(s): 23318675 (2) H/O section Current Visit: Yes Status: Acute Code(s): Z98.891 - HISTORY OF UTERINE SCAR FROM PREVIOUS SURGERY SNOMED Code(s): 928567296 (3) Family planning Current Visit: Yes Status: Acute Code(s): Z30.09 - ENCOUNTER FOR OT GENERAL CNSL AND ADVICE ON CONTRACEPTION SNOMED Code(s): 239208799 Plan: This is a 30-year-old 012 at 39-2/7 weeks that presents for repeat section with tubal ligation. Patient has a history of 2 prior C- sections, desires repeat with tubal ligation. Patient states she is done with family planning. Surgery is reviewed and questions are answered. Risks are reviewed including but not limited to infection, bleeding, damage to bladder, bowel, injury. Patient states understanding given her prior C-sections. We'll proceed to the operating suite.
[2021-07-06] MEDS ORDERED: OXYTOCIN 30 UNITS/500 ML NS 30 UNIT in SALINE 1 500ML.BAG IV SCH (13:00)
--- NOTE | 2021-07-06 13:03 | P.OP ---
Date of Procedure: 07/06/21 Preoperative Diagnosis: IUP at 39-2/7 weeks, history of 2, desires permanent sterilization Postoperative Diagnosis: Same Procedure(s) Performed: Repeat section with Filshie clip tubal sterilization Anesthesia: spinal Surgeon: Zhane Son Defensive Fire Control Systems Operator #1: Angelica Hayden Estimated Blood Loss (ml): 480 IV fluids (ml): 1,000 Urine output (ml): 200 Pathology: none sent Condition: stable Disposition: observation Indications for Procedure: History of 2, desires permanent sterilization with tubal ligation Operative Findings: Very thin lower uterine segment is appreciated, normal ovaries appreciated bilaterally. Filshie clips are placed on bilateral fallopian tubes. Description of Procedure: Patient is taken back to the operating suite where spinal anesthesia was found be adequate by the anesthesia department. She is prepped and draped in the normal sterile fashion in the dorsal supine position. A Pfannenstiel skin in cision was made with the scalpel and carried through the underlying layer of fascia. The fascia was then incised in the midline and extended laterally. The superior aspect of the fascial incision is then grasped esteban clamps, elevated and underlying rectus muscles dissected off sharply. Attention was then turned the inferior aspect of the fascial incision which was grasped esteban clamps, elevated and underlying rectus muscles dissected off sharply. The peritoneum was then identified and entered, a small omental adhesion was noted on the anterior abdominal wall therefore this was taken down sharply with the Bovie. Hemostasis was appreciated. The peritoneal incision was then extended superiorly and inferiorly with good visualization the bladder. The bladder blade was then inserted into the pelvis and a bladder flap was created using sharp dissection. The hysterotomy incision was made with the scalpel, amniotomy was performed and copious clear in the attic fluid was appreciated. The was encountered in a vertex presentation and delivered in the usual fashion, the umbilical cord was doubly clamped and cut. The infant was handed off to awaiting RN. A spontaneous cry was noted at . The placenta was delivered manually intact with a three-vessel cord being noted. The uterus was delivered from the abdomen and cleared of all clots and debris. Hysterotomy incision was closed with 0 Vicryl in a running locked fashion. The left fallopian tube was visualized a segment of fallopian tube approximately 3 cm from the corneal was then grasped with the Filshie clip applicator and crushed, this was then repeated on the opposite side. Hemostasis was noted. The hysterotomy incision was inspected hemostasis was appreciated. The uterus was returned to the abdomen, the gutters were cleared of all clots and debris. The hysterotomy incision was inspected and a points of bleeding were made hemostatic with the Bovie. The rectus muscles were inspected and found to be hemostatic. The fascia was then closed with 0 Vicryl in a running fashion from one lateral edge the midline and the other lateral edge the midline. The subcutaneous tissue was irrigated found to be hemostatic and closed with 3-0 Vicryl in a running fashion. The skin was then closed with 4-0 Vicryl in a subarticular fashion Steri-Strips and sterile dressings were applied. All counts are noted to be correct 2. Patient and tolerated delivery well and are resting comfortably.
[2021-07-06] MEDS: ACETAMINOPHEN IV (For NPO) 1,000 MG in EMPTY BAG 1 BAG IVPB SCH ×2 (15:00→21:52)
[2021-07-06] MEDS: LACTATED RINGERS 1,000 ML IV SCH ×2 (15:01→21:52)
[2021-07-06] MEDS: IBUPROFEN 600 MG TAB PO SCH ×2 (18:04→23:12)
[2021-07-06] MEDS: SENNOSIDES-DOCUSATE SODIUM 1 EACH TAB PO SCH (19:41)
[2021-07-06] MEDS: IBUPROFEN IV 800 MG in SODIUM CHLORIDE 0.9% 250 ML IV SCH ×2 (19:42→21:52)
[2021-07-07] MEDS: ACETAMINOPHEN TAB 500 MG TAB PO SCH ×2 (03:40→13:17)
[2021-07-07 04:02] VITALS: RESP 16
[2021-07-07 05:58] LABS: Basophils % (A) 0 %; Eosinophils # (A) 0.2 k/uL (0-0.7); Eosinophils % (A) 2 %; HCT 30.5 % (34.0-46.0); HGB 9.8 gm/dL (11.4-16.0); Hypochromasia Slight; Lymphocytes # (A) 1.4 k/uL (1.0-4.8); Lymphocytes % (A) 14 %; MCH 26.7 pg (25.0-35.0); MCHC 32.1 g/dL (31.0-37.0); MCV 83.1 fL (80.0-100.0); Mean Platelet Volume 8.4; Monocytes # (A) 0.4 k/uL (0-1.0); Monocytes % (A) 4 %; Neutrophils # (A) 7.8 k/uL (1.3-7.7); Neutrophils % (A) 78 %; Platelet Count 247 k/uL (150-450); RBC 3.67 m/uL (3.80-5.40); RDW 14.9 % (11.5-15.5)
--- NOTE | 2021-07-07 06:27 | P.PN ---
Progress Note - Text Progress Note Date: 07/07/21 is a 30 -year-old female had a history of under spinal analgesia with Astramorph 300 g for postop pain. Today patient is comfortable sitting in her bed. Today patient rated her pain level 3-4 out of 10 in severity. Denied any fever, drowsiness, confusion. Denied any weakness, tingling sensation in her lower extremities. Denied any bowel or bladder problems. Moving all extremities without any difficulty. Able to walk without any difficulties. Patient denied any itching. Vitals: Hemodynamically stable Continue oral pain medication as per primary team.
--- NOTE | 2021-07-07 08:43 | P.PNOBGPC ---
Subjective - Subjective Principal diagnosis: POD 1 RCS with TL Interval history: Patient is doing well. She is ambulating and voiding without difficulty. States her pain is well-controlled. Her lochia is minimal. She denies concerns. She would like discharge home later today as she has a to go to tomorrow. Patient reports: Reports appetite normal, Reports voiding normally, Reports pain well controlled, Reports ambulating normally : doing well Objective - Vital Signs Latest vital signs: Vital Signs Temp Pulse Resp BP Pulse Ox 07/07/21 08:00 97.9 F 86 16 102/66 07/07/21 04:00 97.5 F L 100 16 106/65 97 07/06/21 23:17 98.4 F 83 18 105/60 97 07/06/21 20:00 97.6 F 85 18 105/63 98 07/06/21 19:00 18 07/06/21 17:00 16 98 07/06/21 15:13 97.5 F L 97 16 108/58 98 07/06/21 14:50 93 16 105/60 96 07/06/21 14:20 90 16 98/56 97 07/06/21 13:50 86 16 121/59 97 07/06/21 13:35 90 16 113/59 97 07/06/21 13:20 90 16 110/55 97 07/06/21 13:05 103 H 16 119/60 97 07/06/21 12:50 97.2 F L 107 H 16 147/66 95 07/06/21 10:29 98 F 100 16 131/79 95 Intake and Output 07/06/21 07/07/21 07/07/21 22:59 06:59 14:59 Intake Total 1000 Output Total 1200 300 Balance -200 -300 Intake: IV 1000 Invasive Line 1 1000 Output: Urine 1200 300 Uretheral ([place]) 1200 Other: # Voids 1 - Exam Extremities: Present: normal, edema Incision: Present: normal, dry Uterus: Present: normal, firm - Labs Labs: Abnormal Lab Results - Last 24 Hours (Table) 07/06/21 07/07/21 Range/Units 10:25 05:15 RBC 3.67 L (3.80-5.40) m/uL Hgb 11.0 L 9.8 L (11.4-16.0) gm/dL Hct 30.5 L (34.0-46.0) % Neutrophils # 7.8 H (1.3-7.7) k/uL Assessment and Plan (1) Term Current Visit: Yes Status: Acute Code(s): Z34.90 - ENCNTR FOR SUPRVSN OF NORMAL , UNSP, UNSP TRIMESTER SNOMED Code(s): 21938146 (2) H/O section Current Visit: Yes Status: Acute Code(s): Z98.891 - HISTORY OF UTERINE SCAR FROM PREVIOUS SURGERY SNOMED Code(s): 238094747 (3) Family planning Current Visit: Yes Status: Acute Code(s): Z30.09 - ENCOUNTER FOR OTH GENERAL CNSL AND ADVICE ON CONTRACEPTION SNOMED Code(s): 976009007 (4) S/P section Current Visit: Yes Status: Acute Code(s): Z98.891 - HISTORY OF UTERINE SCAR FROM PREVIOUS SURGERY SNOMED Code(s): 169451167 Plan: 30-year-old G4 now P3013 status post repeat section with tubal ligation. Patient is doing well post operatively. She is very desirous of discharge home later tonight. Discharge instructions are reviewed. Patient states understanding. She states she is feeling well and would be okay with discharge. She does have a to go to and that is her biggest concern
[2021-07-07] MEDS: SENNOSIDES-DOCUSATE SODIUM 1 EACH TAB PO SCH (09:09)
[2021-07-07] MEDS: IBUPROFEN 600 MG TAB PO SCH ×2 (09:09→16:08)
[2021-07-07 16:47] VITALS: BP 116/71; PULSE 56; TEMP 98.3
--- NOTE | 2021-07-07 17:11 | P.DS ---
Providers Date of admission: 07/06/21 09:51 Expected date of discharge: 07/07/21 Attending physician: Zhane Son Primary care physician: Stated None - Discharge Diagnosis(es) (1) Term Current Visit: Yes Status: Acute (2) H/O section Current Visit: Yes Status: Acute (3) Family planning Current Visit: Yes Status: Acute (4) S/P section Current Visit: Yes Status: Acute Hospital Course: This is a 30-year-old 4 now para 3013 status post repeat section with tubal ligation. Patient presented to labor and delivery yesterday 07/06 for scheduled repeat section with tubal ligation. Patient has been receiving routine care which has been essentially uncomplicated. For full details on this patient please see dictated history and physical. Patient underwent repeat section, with tubal ligation, Filshie clips. For full details on the procedure please see the operative report. Patient's postoperative course has been uneventful. On this postoperative day #1 she is ambulating and voiding without difficulty. She tolerated regular diet without nausea or vomiting. States her pain is well- controlled. She has a to go to tomorrow morning and does wish discharge home. Infant has passed her 24 hour screen and was discharged. Patient Condition at Discharge: Good Plan - Discharge Summary Discharge Rx Participant: Yes New Discharge Prescriptions: No Action Acetaminophen [Tylenol] 325 - 650 mg PO Q4H PRN PRN Reason: Pain Discharge Medication List Acetaminophen [Tylenol] 325 - 650 mg PO Q4H PRN 07/05/21 [History] Follow up Appointment(s)/Referral(s): Zhane Son DO [Doctor of Osteopathic Medicine] - 2 Weeks Patient Instructions/Handouts: (DC), (GEN) Discharge Disposition: HOME SELF-CARE
== END 2021-07-07 18:00 | disposition home or self-care (01) | DRG 784 ==
LOC: 4FBP 09:51
PROVIDERS: ADMIT Obstetrics & Gynecology Obstetrics; ATTEND Obstetrics & Gynecology Obstetrics
PROC: 0UB70ZZ Excision of Bilateral Fallopian Tubes, Open Approach (ICD-10-PCS; 2021-07-06)
PROC: 10D00Z1 Extraction of Products of Conception, Low, Open Approach (ICD-10-PCS; principal; 2021-07-06 12:00)
DX: O34.211 Maternal care for low transverse scar from previous cesarean delivery (principal); O99.324 Drug use complicating childbirth; O99.824 Streptococcus B carrier state complicating childbirth; F32.A Depression, unspecified; F41.9 Anxiety disorder, unspecified; F90.9 Attention-deficit hyperactivity disorder, unspecified type; O99.344 Other mental disorders complicating childbirth; F12.90 Cannabis use, unspecified, uncomplicated; Z30.2 Encounter for sterilization; Z37.0 Single live birth; Z3A.39 39 weeks gestation of pregnancy
CPT/HCPCS: 85025; 86850; 86900; 86901

== ENCOUNTER 2023-11-04 19:34 | Emergency (ER) | payer OTHER ==
[2023-11-04] MEDS: LIDOCAINE 1% INJ 10MG/ML (20 ML MDV) SQ ONE (21:02)
--- NOTE | 2023-11-04 21:06 | ED ---
Wound/Laceration HPI - General Chief Complaint: Wound/Laceration Stated Complaint: multiple lacerations rt arm Time Seen by Provider: 11/04/23 21:01 Source: family, RN notes reviewed Mode of arrival: ambulatory Limitations: no limitations - History of Present Illness Initial Comments: 33-year-old female with no significant past medical history presenting with laceration on right arm 2 hours ago. Patient reports she pushed open glass door with right hand and the glass shattered, cutting multiple areas of right forearm. She admits some pain in her right elbow but denies other injuries. Reports last tetanus was 2 or 3 years ago. Denies blood thinners. - Related Data Home Medications Medication Instructions Recorded Confirmed Acetaminophen [Tylenol] 325 - 650 mg PO Q4H PRN 07/05/21 07/06/21 Allergies Allergy/AdvReac Type Severity Reaction Status Date / Time No Known Allergies Allergy Verified 11/04/23 19:49 Review of Systems ROS Statement: Those systems with pertinent positive or pertinent negative responses have been documented in the HPI. ROS Other: All systems not noted in ROS Statement are negative. Past Medical History Past Medical History: No Reported History Additional Past Medical History / Comment(s): Hx of "miscarriage 10 yrs, had some blood clotting issues then, none since". History of Any Multi-Drug Resistant Organisms: None Reported Past Surgical History: Section Additional Past Surgical History / Comment(s): Section X2. Past Anesthesia/Blood Transfusion Reactions: No Reported Reaction, Motion Sickness Past Psychological History: ADD/ADHD, Anxiety, Depression Smoking Status: Never smoker Past Alcohol Use History: None Reported Past Drug Use History: Marijuana - Past Family History Mother Family Medical History: No Reported History Father Family Medical History: Coronary Artery Disease (CAD) General Exam Limitations: no limitations General appearance: alert, in no apparent distress Head exam: Present: atraumatic, normocephalic, normal inspection Eye exam: Present: normal appearance, PERRL, EOMI. Absent: scleral icterus, conjunctival injection, periorbital swelling Respiratory exam: Present: normal lung sounds bilaterally. Absent: respiratory distress, wheezes, rales, rhonchi, stridor Cardiovascular Exam: Present: regular rate, normal rhythm, normal heart sounds. Absent: systolic murmur, diastolic murmur, rubs, gallop, clicks Right Upper Arm exam: Present: normal inspection, full ROM. Absent: tenderness, swelling Elbow exam: Present: normal inspection, full ROM, tenderness Forearm Wrist exam: Present: full ROM, laceration. Absent: normal inspection (6 inch linear laceration present on dorsal aspect of right forearm with subcutaneous tissue protruding. No active bleeding. There is a 3 cm linear superficial laceration on the distal aspect of right dorsal forearm. No active bleeding.), tenderness, deformity Hand Wrist exam: Present: normal inspection, full ROM. Absent: tenderness, swelling, laceration Vascular: Present: normal capillary refill. Absent: vascular compromise (Full sensation and radial pulses bilaterally) Course Vital Signs 11/04/23 11/04/23 11/04/23 19:48 21:47 23:13 Temperature 98 F Pulse Rate 18 L 94 Respiratory 119 H 18 Rate Blood Pressure 119/79 116/74 O2 Sat by Pulse 99 99 97 Oximetry 11/04/23 23:14 Temperature 98.2 F Pulse Rate 90 Respiratory 18 Rate Blood Pressure 116/73 O2 Sat by Pulse 99 Oximetry Procedures - Laceration Laceration #1 Consent Obtained: verbal consent Indication: laceration Site: upper extremity Size (cm): 15 Description: linear Depth: simple, single layer (Subcutaneous tissue is protruding) Anesthetic Used: lidocaine 1% Anesthesia Technique: local infiltration Amount (mls): 4 Pre-repair: wound explored, irrigated extensively, deep structures intact Type of Sutures: nylon Size of Sutures: 4-0 Number of Sutures: 12 Technique: simple, interrupted Patient Tolerated Procedure: well, no complications Additional Comments: Patient is neurovascularly intact status post procedure Laceration #2 Consent Obtained: verbal consent Indication: laceration Site: upper extremity Size (cm): 3 Description: linear Depth: simple, single layer Pre-repair: wound explored, irrigated extensively, deep structures intact Patient Tolerated Procedure: well, no complications Additional Comments: Skin adhesive applied with Steri-Strips. Patient is neurovascularly intact status post procedure. Hemostasis achieved Medical Decision Making - Medical Decision Making Was pt. sent in by a medical professional or institution (, PA, NURSE ESTHETICIAN, urgent care, hospital, or [facility]...) When possible be specific @ -No Did you speak to anyone other than the patient for history (EMS, parent, family, police, friend...)? What history was obtained from this source @ -No Did you review nursing and triage notes (agree or disagree)? Why? @ -I reviewed and agree with nursing and triage notes Were old charts reviewed (outside hosp., previous admission, EMS record, old EKG, old radiological studies, urgent care reports/EKG's, [facility] records)? Report findings @ -No old charts were reviewed Differential Diagnosis (chest pain, altered mental status, abdominal pain women, abdominal pain men, vaginal bleeding, weakness, fever, dyspnea, syncope, headache, dizziness, GI bleed, back pain, seizure, CVA, palpatations, mental health, musculoskeletal)? @ -Differential Musculoskeletal Laceration, foreign body, muscular strain, contusion, ligament sprain, fracture, arthritis, septic arthritis, bursitis, cellulitis, muscle spasm, nerve compression, DVT, arterial occlusion, herpes zoster, electrolyte abnormality, tumor.... This is not meant to be in all inclusive list EKG interpreted by me (3pts min.). @ -None X-rays interpreted by me (1pt min.). @ -X-ray of right forearm negative for acute process, final read pending at time of discharge CT interpreted by me (1pt min.). @ -None done U/S interpreted by me (1pt. min.). @ -None done What testing was considered but not performed or refused? (CT, X-rays, U/S, labs)? Why? @ -None What meds were considered but not given or refused? Why? @ -Tetanus updated 3 years ago Did you discuss the management of the patient with other professionals (professionals i.e. , PA, NURSE ESTHETICIAN, lab, RT, psych nurse, family welfare social work professor, toy trains and accessories salesperson, teacher, fire control officer, rn case manager)? Give summary @ -No Was smoking cessation discussed for >3mins.? @ -No Was critical care preformed (if so, how long)? @ -No Were there social determinants of health that impacted care today? How? (Homelessness, low income, unemployed, alcoholism, drug addiction, transportation, low edu. Level, literacy, decrease access to med. care, fpc, rehab)? @ -No Was there de-escalation of care discussed even if they declined (Discuss DNR or withdrawal of care, Hospice)? DNR status @ -No What co-morbidities impacted this encounter? (DM, HTN, Smoking, COPD, CAD, Cancer, CVA, ARF, Chemo, Hep., AIDS, mental health diagnosis, sleep apnea, morbid obesity)? @ -None Was patient admitted / discharged? Hospital course, mention meds given and route, prescriptions, significant lab abnormalities, going to OR and other pertinent info. @ -Patient was discharged. Patient was seen and evaluated for 2 lacerations on right forearm after being sliced by glass. Patient is neurovascularly intact. There is a 6 inch laceration on dorsal aspect of right forearm with subcutaneous tissue protruding and minimal bleeding. There is also a 3 cm superficial linear laceration on the distal aspect of dorsal right forearm. Tetanus not indicated at this time as was updated 3 years ago. X-ray of right forearm was negative for acute process, final read pending at time of discharge. Patient was given ibuprofen for pain. 12 sutures placed on first laceration after extensive irrigation, patient tolerated well with no complications. Skin adhesive applied to second laceration with Steri-Strips, patient tolerated well with no complications. Hemostasis is achieved. Patient is neurovascularly intact status post procedure. Wound care discussed in detail. Advised to follow-up for suture removal in 7 days. Strict red flag/return symptoms discussed with patient in detail and she shows understanding and agrees with plan. Patient discharged in stable condition. Case discussed with Dr. Hernandez. Undiagnosed new problem with uncertain prognosis? @ -No Drug Therapy requiring intensive monitoring for toxicity (Heparin, Nitro, Insulin, Cardizem)? @ -No Were any procedures done? @ -Yes, sutures placed in first laceration, skin adhesive and Steri-Strips applied to second laceration Diagnosis/symptom? @ -Multiple lacerations of right forearm Acute, or Chronic, or Acute on Chronic? @ -Acute Uncomplicated (without systemic symptoms) or Complicated (systemic symptoms)? @ -Uncomplicated Side effects of treatment? @ -No Exacerbation, Progression, or Severe Exacerbation? @ -No Poses a threat to life or bodily function? How? (Chest pain, [place], [place], pneumonia, PE, COPD, DKA, ARF, appy, cholecystitis, CVA, Diverticulitis, Homicidal, Suicidal, threat to staff... and all critical care pts) @ -Low likelihood Disposition Clinical Impression: Laceration of forearm, right Disposition: HOME SELF-CARE Condition: Stable Instructions (If sedation given, give patient instructions): Care For Your Stitches (ED), Laceration (ED) Additional Instructions: Please follow-up in 7 days for suture removal. Wound care as discussed. Please return to the Emergency Department if symptoms worsen or any other concerns. Is patient prescribed a controlled substance at d/c from ED?: No Referrals: John Rucker MD [Primary Care Provider] - 1-2 days Time of Disposition: 22:51
[2023-11-04] MEDS: IBUPROFEN 600 MG TAB PO STA (21:49)
[2023-11-04 22:19] VITALS: RESP 18
--- NOTE | 2023-11-04 23:20 | XR ---
EXAMINATION TYPE: XR elbow complete RT DATE OF EXAM: 11/04/2023 COMPARISON: NONE HISTORY: Pain FINDINGS: Three views of the elbow demonstrate no pathologic joint effusion. The osseous structures are intact . There is no acute fracture or dislocation. Soft tissue edema with suspected laceration. No metall ic foreign body. IMPRESSION: 1. No acute fracture or dislocation. If symptoms persist follow-up study in 7 to 10 days could be ob tained. 2. Soft tissue laceration with no definite foreign body.
[2023-11-04 23:59] VITALS: BP 116/73; PULSE 90; TEMP 98.2
== END 2023-11-04 23:29 | disposition home or self-care (01) ==
LOC: EC 19:34
DX: S51.811A Laceration without foreign body of right forearm, initial encounter (principal); W25.XXXA Contact with sharp glass, initial encounter
CPT/HCPCS: 73080; 12005; 99283; J2001